=== PATIENT | female | born 1970 | race Two or more races ===

== ENCOUNTER 2018-11-09 10:27 | Outpatient (CLI) | payer OTHER ==
[~2018-11-09 10:27] MED LIST: DESIPRAMINE HCL25 MG PO; INDOCIN25 MG PO; METHOCARBAMOL500 MG PO; MICARDIS20 MG PO
== END 2018-11-09 10:51 | disposition home or self-care (01) ==
LOC: RAD 501 10:27
DX: M25.511 Pain in right shoulder (principal); R06.89 Other abnormalities of breathing